=== PATIENT | female | born 1990 | race Caucasian/White ===

== ENCOUNTER → 2016-08-08 | Outpatient (CLI) | payer MEDICAID ==
[~2016-08-08] MED LIST: MOTR200T44 PO; VITAPRTA PO
[2016-08-08 19:01] LABS: BASO % 0.3 % (0.0-1.0); EOS # 0.1 K/mm3 (0.0-0.50); EOS % 0.7 % (0.0-3.0); LARGE UNSTAINED CELL # 0.1 K/mm3 (0.0-0.4); LARGE UNSTAINED CELL % 1.1 % (0.0-4.0); LYMPH # 2.5 K/mm3 (1.5-6.5); LYMPH % 30.3 % (24.0-44.0); MEAN CORPUSCULAR HEMOGLOBIN 28.2 pg (27.0-33.0); MEAN CORPUSCULAR HGB CONC 33.5 g/dl (32.0-36.5); MONO # 0.4 K/mm3 (0.0-0.8); MONO % 5.3 % (0.0-5.0); NEUTROPHILS # 5.2 K/mm3 (1.8-7.7); NEUTROPHILS % 62.4 % (36.0-66.0); PLATELET COUNT, AUTOMATED 208 k/mm3 (150-450); RED CELL DISTRIBUTION WIDTH 12.4 % (11.5-14.5); WHITE BLOOD COUNT 8.3 K/mm3 (4.0-10.0)
== END ==
LOC: M SMT 12:15
PROVIDERS: ATTEND Advanced Practice Midwife
DX: Z34.81 Encounter for supervision of other normal pregnancy, first trimester (principal)

== ENCOUNTER → 2016-08-25 | Outpatient (CLI) | payer MEDICAID ==
[2016-08-25 20:06] LABS: THYROXINE (T4) 8.2 UG/DL (4.5-12.0)
== END ==
LOC: M SMT 14:25
PROVIDERS: ATTEND Advanced Practice Midwife
DX: E03.9 Hypothyroidism, unspecified (principal)

== ENCOUNTER → 2016-08-28 | Outpatient (REF) | payer MEDICAID | LOC: M LAB REF 10:53 | PROVIDERS: ATTEND Advanced Practice Midwife | DX: Z34.81 Encounter for supervision of other normal pregnancy, first trimester (principal) ==

== ENCOUNTER → 2016-09-10 | Day surgery (SDC) | payer MEDICAID, OTHER ==
[~2016-09-10] MED LIST changes: +KETOROLAC 30 MG/ML VIAL (J1885) IV SCH; +KETOROLAC 60 MG/2 ML VIAL (J1885) As Ordered ONE; +LIDOCAINE 1% SDV INJ 30 ML VIAL As Ordered ONE; +LIDOCAINE 2% INJ 100 MG/5 ML SDV (FOR ANES.) As Ordered ONE; +MIDAZOLAM INJ 2 MG/2 ML VIAL (J2250) As Ordered ONE; +ONDANSETRON 4MG/2ML VIAL (J2405) As Ordered ONE; +PERCOCET 5MG/325MG TAB As Ordered ONE; +PERCOCET 5MG/325MG TAB PO PRN; +PROPOFOL 200 MG/20 ML VIAL As Ordered ONE; +PROPOFOL 500 MG/50 ML VIAL As Ordered ONE; +fentaNYL 100 MCG/2 ML INJECTION (J3010) As Ordered ONE
[2016-09-10 12:53] LABS: MEAN CORPUSCULAR HEMOGLOBIN 29.5 pg (27.0-33.0); MEAN CORPUSCULAR HGB CONC 35.2 g/dl (32.0-36.5); MEAN CORPUSCULAR VOLUME 83.9 fl (80.0-96.0); WHITE BLOOD COUNT 7.8 K/mm3 (4.0-10.0)
[2016-09-10 15:05] VITALS: BP 114/62
--- NOTE | 2016-09-10 16:18 | RO ---
DATE OF PROCEDURE: 09/10/2016 PREPROCEDURE DIAGNOSIS: Intrauterine embryonic demise. POSTPROCEDURE DIAGNOSIS: Intrauterine embryonic demise. PROCEDURE: Dilation with sharp suction and curettage. SURGEON: Kacey Urias MD CANE FLUME FEEDING MACHINE OPERATOR: None. ANESTHESIA: IV sedation with paracervical block. ESTIMATED BLOOD LOSS: 20 mL INTRAVENOUS FLUIDS: 400 mL SPECIMENS: Uterine contents. DESCRIPTION OF OPERATION: After informed consent was obtained and written consent was reviewed, the patient was taken to the operating room where IV sedation was placed. She was then placed in the lithotomy position, and was prepped and draped in a normal sterile fashion. A time out in the operating room was then performed identifying the patient, procedure to be performed as well as drug allergies. A bivalve speculum was placed revealing the cervix. A paracervical block was then performed utilizing 1% lidocaine. The anterior lip of the cervix was then grasped with a single tooth tennaculum. The uterus was sounded to 9 cm. Was then sequentially dilated using Hanks dilators. #9 curved suction curette was then advanced through the cervical os to the level of the fundus. This was attached to suction. Suction was deployed. The uterus was curetted in a 360 degrees fashion. A large amount of tissue was obtained. The suction curette was then removed. Raz Stone forceps were then advanced into the cervical os where there was tissue, which was teased out from the cervical os. That was also collected and sent to pathology. The sharp curette was then advanced through the cervical os to the level of the fundus and the uterus was curetted in 360 degrees fashion. A second pass of the suction curette was then performed productive of minimal amounts of blood, then no further tissue. The instruments were then removed from the patient's vagina. Single tooth tenaculum was removed. Tenaculum sites were noted to be hemostatic. Speculum was removed. The patient was then taken out of lithotomy position, was taken to recovery in stable condition. Counts were correct.
== END | disposition home or self-care (01) ==
LOC: M SDC 10:16
PROVIDERS: ATTEND Obstetrics & Gynecology
DX: O02.1 Missed abortion (principal)
CPT/HCPCS: 36415; 59820; 85027; 86850; 86900; 86901; 88305; J1885; J2250; J2405; J3010

== ENCOUNTER → 2017-02-11 | Outpatient (CLI) | payer OTHER ==
[~2017-02-11] MED LIST changes: +ASPI81TA85 PO; -KETOROLAC 30 MG/ML VIAL (J1885) IV SCH; -KETOROLAC 60 MG/2 ML VIAL (J1885) As Ordered ONE; -LIDOCAINE 1% SDV INJ 30 ML VIAL As Ordered ONE; -LIDOCAINE 2% INJ 100 MG/5 ML SDV (FOR ANES.) As Ordered ONE; -MIDAZOLAM INJ 2 MG/2 ML VIAL (J2250) As Ordered ONE; -ONDANSETRON 4MG/2ML VIAL (J2405) As Ordered ONE; -PERCOCET 5MG/325MG TAB As Ordered ONE; -PERCOCET 5MG/325MG TAB PO PRN; -PROPOFOL 200 MG/20 ML VIAL As Ordered ONE; -PROPOFOL 500 MG/50 ML VIAL As Ordered ONE; -fentaNYL 100 MCG/2 ML INJECTION (J3010) As Ordered ONE
[2017-02-11 13:07] LABS: BASO % 0.2 % (0.0-1.0); EOS % 0.4 % (0.0-3.0); IMMATURE GRANULOCYTE % 0.2 % (0-0); LYMPH # 2.7 10^3/uL (1.5-6.5); MEAN CORPUSCULAR HEMOGLOBIN 28.3 pg (27.0-33.0); MEAN CORPUSCULAR HGB CONC 33.7 g/dl (32.0-36.5); MONO # 0.6 10^3/uL (0.0-0.8); MONO % 7.1 % (0.0-5.0); NEUTROPHILS # 4.7 10^3/uL (1.8-7.7); NEUTROPHILS % 58.1 % (36.0-66.0); PLATELET COUNT, AUTOMATED 238 10^3/uL (150-450); RED CELL DISTRIBUTION WIDTH 12.7 % (11.5-14.5)
[2017-02-11 13:38] LABS: HBsAg Prenatal NEGATIVE (NEGATIVE)
== END ==
LOC: M SMT 10:03
PROVIDERS: ATTEND Advanced Practice Midwife
DX: Z34.81 Encounter for supervision of other normal pregnancy, first trimester (principal)

== ENCOUNTER → 2017-02-27 | Outpatient (CLI) | payer OTHER ==
[2017-02-27 18:57] LABS: THYROXINE (T4) 7.8 UG/DL (4.5-12.0)
== END ==
LOC: M SMT 11:38
PROVIDERS: ATTEND Advanced Practice Midwife
DX: E03.9 Hypothyroidism, unspecified (principal)

== ENCOUNTER 2017-03-27 14:06 | Day surgery (SDC) | payer OTHER ==
[~2017-03-27] VITALS: Ht 177.8 cm; Wt 89.4 kg
[2017-03-27] MEDS ORDERED: PROPOFOL 200 MG/20 ML VIAL As Ordered ONE (14:20)
[2017-03-27] MEDS ORDERED: KETOROLAC 60 MG/2 ML VIAL (J1885) As Ordered ONE (14:20)
[2017-03-27] MEDS ORDERED: fentaNYL 100 MCG/2 ML INJECTION (J3010) As Ordered ONE (14:20)
[2017-03-27] MEDS ORDERED: LIDOCAINE 2% INJ 100 MG/5 ML SDV (FOR ANES.) As Ordered ONE (14:20)
[2017-03-27] MEDS ORDERED: ONDANSETRON 4MG/2ML VIAL (J2405) As Ordered ONE (14:20)
[2017-03-27] MEDS ORDERED: MIDAZOLAM INJ 2 MG/2 ML VIAL (J2250) As Ordered ONE (14:20)
[2017-03-27] MEDS ORDERED: dexameTHASONE 4 MG/ML 1ML VIAL (J1100) As Ordered ONE (14:20)
[2017-03-27] MEDS: LIDOCAINE 1% SDV INJ 30 ML VIAL As Ordered ONE ×2 (15:05→15:17)
[2017-03-27] MEDS ORDERED: ACETAMINOPHEN 500 MG TAB As Ordered ONE (16:24)
[2017-03-27 16:30] VITALS: BP 112/56
[2017-03-27] MEDS ORDERED: LR 1,000 ML IV SCH (16:30)
[2017-03-27] MEDS ORDERED: ACETAMINOPHEN 500 MG TAB PO ONE (16:45)
--- NOTE | 2017-03-29 09:07 | RO ---
DATE OF PROCEDURE: 03/27/2017 PREOPERATIVE DIAGNOSIS: Embryonic demise. POSTOPERATIVE DIAGNOSIS: Embryonic demise. PROCEDURE: Dilatation, evacuation and curettage (DE C). SURGEON: Kuldip Cardoza MD BIT WELDER: ANESTHESIA: Local with sedation. ESTIMATED BLOOD LOSS: 50 mL. FINDINGS: Moderate amount of products of conception with mildly enlarged uterus. OPERATIVE SUMMARY: Patient was taken to the operating room where IV sedation was given. She was prepped and draped in the usual sterile fashion in the dorsal lithotomy position. A speculum was placed. The anterior lip of the cervix was grasped with the tenaculum. The cervix was injected circumferentially with 20 mL of 1% lidocaine. The cervix was dilated with tapered dilators. A number 9 mm curette was placed through the internal os. The suction device was activated and the curette was gently rotated. The products of conception were noted coming through the suction tubing. A sharp curettage was performed. The uterine cavity was deemed to be empty. Sponge and instrument counts were correct. The patient went to the recovery room in stable condition.
== END 2017-03-27 16:55 | disposition home or self-care (01) ==
LOC: M SDC 14:06
PROVIDERS: ATTEND Specialist
DX: O02.1 Missed abortion (principal); Z87.891 Personal history of nicotine dependence; Z79.899 Other long term (current) drug therapy; Z79.82 Long term (current) use of aspirin

== ENCOUNTER → 2017-06-30 | Outpatient (CLI) | payer OTHER ==
[2017-06-30 20:22] LABS: HCG, SERUM QUANTITATIVE 112040 MIU/ML
== END ==
LOC: M SMT 13:42
DX: Z34.80 Encounter for supervision of other normal pregnancy, unspecified trimester (principal)
CPT/HCPCS: 84702

== ENCOUNTER → 2017-08-04 | Outpatient (CLI) | payer OTHER ==
[2017-08-04 13:30] LABS: BASO % 0.2 % (0.0-1.0); EOS % 0.4 % (0.0-3.0); HEMOGLOBIN 12.1 g/dl (12.0-16.0); IMMATURE GRANULOCYTE % 0.2 % (0-3.0); LYMPH # 2.2 10^3/uL (1.5-6.5); LYMPH % 23.4 % (24.0-44.0); MEAN CORPUSCULAR HEMOGLOBIN 28.6 pg (27.0-33.0); MEAN CORPUSCULAR HGB CONC 33.6 g/dl (32.0-36.5); MEAN CORPUSCULAR VOLUME 85.1 fl (80.0-96.0); MONO # 0.6 10^3/uL (0.0-0.8); MONO % 6.7 % (0.0-5.0); NEUTROPHILS # 6.5 10^3/uL (1.8-7.7); NEUTROPHILS % 69.1 % (36.0-66.0); PLATELET COUNT, AUTOMATED 218 10^3/uL (150-450); RED BLOOD COUNT 4.23 10^6/uL (4.00-5.40); RED CELL DISTRIBUTION WIDTH 13.6 % (11.5-14.5); WHITE BLOOD COUNT 9.4 10^3/uL (4.0-10.0)
[2017-08-04 14:14] LABS: FREE THYROXINE INDEX 2.4 % (1.3-4.8); T UPTAKE 21 % (30-39); THYROXINE (T4) 11.2 UG/DL (4.5-12.0)
[2017-08-04 15:47] LABS: CHLAMYDIA DNA AMPLIFICATION NEGATIVE (NEGATIVE); GC DNA AMPLIFICATION NEGATIVE (NEGATIVE)
[2017-08-05 12:15] LABS: RUBELLA IgG QUALITATIVE IMMUNE (IMMUNE)
[2017-08-05 12:18] LABS: HBsAg Prenatal NEGATIVE (NEGATIVE)
[2017-08-05 12:45] LABS: HEPATITIS C VIRUS ABY INDEX 0.1 INDEX (<0.8)
[2017-08-05 12:46] LABS: HIV 1&2 SCREEN CENTAUR NEGATIVE (NEGATIVE)
== END ==
LOC: M SMT 09:56
DX: Z34.81 Encounter for supervision of other normal pregnancy, first trimester (principal); Z3A.12 12 weeks gestation of pregnancy
CPT/HCPCS: 84443

== ENCOUNTER → 2017-09-14 | Outpatient (CLI) | payer OTHER | LOC: M SMT 11:15 | DX: Z36.2 Encounter for other antenatal screening follow-up (principal); Z3A.21 21 weeks gestation of pregnancy | CPT/HCPCS: 76816 ==

== ENCOUNTER → 2017-12-25 | Outpatient (REF) | payer OTHER | LOC: M LAB REF 17:12 | DX: Z34.83 Encounter for supervision of other normal pregnancy, third trimester (principal) ==

== ENCOUNTER 2018-01-10 15:58 | Inpatient (IN) | payer OTHER ==
[2018-01-10] MEDS ORDERED: LR 1,000 ML IV (17:22)
[2018-01-10] MEDS: LACTATED RINGER'S 1000 ML IV (18:38)
[2018-01-10 18:52] LABS: HEMATOCRIT 36.5 % (36.0-47.0); HEMOGLOBIN 12.5 g/dl (12.0-15.5); MEAN CORPUSCULAR HEMOGLOBIN 29.4 pg (27.0-33.0); MEAN CORPUSCULAR HGB CONC 34.2 g/dl (32.0-36.5); MEAN CORPUSCULAR VOLUME 85.9 fl (80.0-96.0); PLATELET COUNT, AUTOMATED 190 10^3/uL (150-450); RED BLOOD COUNT 4.25 10^6/uL (4.00-5.40); RED CELL DISTRIBUTION WIDTH 13.6 % (11.5-14.5); WHITE BLOOD COUNT 8.6 10^3/uL (4.0-10.0)
[2018-01-10] MEDS ORDERED: FENTANYL 2MCG/ML ROPIVACAINE 0.2% IN 0.9% NACL 200ML IVBAG As Ordered (19:38)
[2018-01-10] MEDS ORDERED: OXYTOCIN 30 UNITS IN 0.9% NaCl 500ML IV BAG (J2590) As Ordered (22:49)
[2018-01-10] MEDS ORDERED: diphenhydrAMINE INJ 50MG/ML VIAL (J1200) IV (23:15)
[2018-01-10] MEDS ORDERED: NALOXONE INJ 0.4 MG/1 ML VIAL (J2310) IV (23:15)
[2018-01-10] MEDS ORDERED: REFRIGERATOR IV KEYS XX (23:15)
[2018-01-10] MEDS ORDERED: EPIDURAL COMMENT XX (23:15)
[2018-01-10] MEDS ORDERED: FENTANYL/ROPIVACAINE/NACL BAG 200 ML EPIDURAL (23:15)
[2018-01-10] MEDS ORDERED: LACTATED RINGER'S 1000 ML IV (23:15)
[2018-01-10] MEDS ORDERED: EPIDURAL/PCA KEYS XX (23:15)
[2018-01-10] MEDS ORDERED: ePHEDrine SULFATE 25 MG/5 ML(5MG/ML) SYRINGE IV (23:15)
[2018-01-10] MEDS ORDERED: ONDANSETRON 4MG/2ML VIAL (J2405) IV (23:15)
[2018-01-11 01:56] LABS: CORD GAS ABE A -10.7; CORD GAS ABE V -3.6; CORD GAS HCO3 A 19.7 MEQ/L; CORD GAS HCO3 V 21.9 MEQ/L; CORD GAS O2 SAT A 71.6 %; CORD GAS O2 SAT V 92.4 %; CORD GAS PCO2 A 64.9 mmHg; CORD GAS PCO2 V 41.2 mmHg; CORD GAS PH A 7.099 UNITS; CORD GAS PH V 7.344 UNITS; CORD GAS PO2 A 40.4 mmHg; CORD GAS PO2 V 52.4 mmHg; CORD GAS SBC A 15.6 MEQ/L; CORD GAS SBC V 21.4 MEQ/L; CORD GAS TCO2 A 21.6 MEQ/L; CORD GAS TCO2 V 23.2 MEQ/L
[2018-01-11] MEDS ORDERED: DIBUCAINE 1% OINTMENT 30GM TOP (02:15)
[2018-01-11] MEDS ORDERED: PROMETHAZINE 25 MG TAB PO (02:15)
[2018-01-11] MEDS ORDERED: DOCUSATE SODIUM 100 MG CAP PO (02:15)
[2018-01-11] MEDS ORDERED: ONDANSETRON 4MG/2ML VIAL (J2405) IV (02:15)
[2018-01-11] MEDS: ACETAMINOPHEN 500 MG TAB PO ×3 (04:11→17:56)
[2018-01-11] MEDS: LR 1,000 ML IV (04:12)
[2018-01-11] MEDS: OXYTOCIN DRIP 30 UNITS in APPROPRIATE DILUENT 1 EA IV (04:12)
[2018-01-11] MEDS: PRENATAL VITAMINS CHEWABLE TABLET PO (08:48)
[2018-01-11] MEDS: IBUPROFEN 800 MG TAB PO ×2 (08:49→22:52)
[2018-01-11] MEDS: MEASLES,MUMPS,RUBELLA VACCINE INJ (MMR-II) (90707) SC (13:36)
[2018-01-11] MEDS: RHOGAM 300 MCG (1500 IU) INJ (J2790) IM (13:36)
[2018-01-12] MEDS: ACETAMINOPHEN 500 MG TAB PO (08:19)
[2018-01-12] MEDS: PRENATAL VITAMINS CHEWABLE TABLET PO (08:19)
== END 2018-01-12 12:20 | disposition home or self-care (01) | DRG 560 ==
LOC: M LDO 15:58 → M OBS 01-11 04:45 → M LDI 17:23
PROVIDERS: Obstetrics & Gynecology
PROC: 10E0XZZ Delivery of Products of Conception, External Approach (ICD-10-PCS; principal; 2018-01-11)
PROC: 10907ZC Drainage of Amniotic Fluid, Therapeutic from Products of Conception, Via Natural or Artificial Opening (ICD-10-PCS; 2018-01-11)
DX: O69.1XX0 Labor and delivery complicated by cord around neck, with compression, not applicable or unspecified (principal); Z37.0 Single live birth; Z3A.38 38 weeks gestation of pregnancy

== ENCOUNTER 2018-01-12 23:46 | Inpatient (IN) | payer OTHER ==
[2018-01-13 01:05] LABS: BASO % 0.1 % (0.0-1.0); EOS % 0.1 % (0.0-3.0); HEMATOCRIT 34.5 % (36.0-47.0); HEMOGLOBIN 11.9 g/dl (12.0-15.5); IMMATURE GRANULOCYTE % 0.8 % (0-3.0); LYMPH # 0.6 10^3/uL (1.5-6.5); LYMPH % 3.4 % (24.0-44.0); MEAN CORPUSCULAR HEMOGLOBIN 29.5 pg (27.0-33.0); MEAN CORPUSCULAR HGB CONC 34.5 g/dl (32.0-36.5); MEAN CORPUSCULAR VOLUME 85.6 fl (80.0-96.0); MONO % 5.5 % (0.0-5.0); NEUTROPHILS # 16.3 10^3/uL (1.8-7.7); NEUTROPHILS % 90.1 % (36.0-66.0); PLATELET COUNT, AUTOMATED 154 10^3/uL (150-450); RED BLOOD COUNT 4.03 10^6/uL (4.00-5.40); RED CELL DISTRIBUTION WIDTH 13.5 % (11.5-14.5); WHITE BLOOD COUNT 18.1 10^3/uL (4.0-10.0)
[2018-01-13] MEDS: MORPHINE 4 MG/ML 1ML VIAL/SYRINGE (J2270) IV ×2 (01:06→04:06)
[2018-01-13] MEDS: NS 1,000 ML IV ×2 (01:06→02:45)
[2018-01-13 01:12] LABS: LACTIC ACID SEPSIS PROTOCOL 1.7 MMOL/L (0.4-2.0)
[2018-01-13 01:13] LABS: ALBUMIN 2.4 GM/DL (3.2-5.2); ALBUMIN/GLOBULIN RATIO 0.77 (1.00-1.93); ALKALINE PHOSPHATASE 114 U/L (45-117); ALT/SGPT 15 U/L (12-78); ANION GAP 13 MEQ/L (8-16); AST/SGOT 17 U/L (7-37); BILIRUBIN,DIRECT 0.1 MG/DL (0.0-0.2); BILIRUBIN,TOTAL 0.4 MG/DL (0.2-1.0); BLOOD UREA NITROGEN 4 MG/DL (7-18); CALCIUM LEVEL 8.3 MG/DL (8.5-10.1); CARBON DIOXIDE LEVEL 22 MEQ/L (21-32); CHLORIDE LEVEL 108 MEQ/L (98-107); CK-MB VALUE MASS < 1.0 NG/ML (<3.6); CPK CREATINE PHOSPHOKINASE 154 U/L (26-192); CREATININE FOR GFR 0.69 MG/DL (0.55-1.30); GLOMERULAR FILTRATION RATE > 60.0 (>60); GLUCOSE, FASTING 83 MG/DL (70-100); LIPASE 89 U/L (73-393); MB/CK RELATIVE INDEX 0.64 (< OR =4); POTASSIUM SERUM 3.3 MEQ/L (3.5-5.1); SODIUM LEVEL 143 MEQ/L (136-145); TOTAL PROTEIN 5.5 GM/DL (6.4-8.2); TROPONIN I < 0.02 NG/ML (< 0.10)
[2018-01-13 01:22] LABS: INR 1.04; PARTIAL THROMBOPLASTIN TIME 36.1 SECONDS (25.4-37.6); PROTHROMBIN TIME 13.7 SECONDS (12.1-14.4)
[2018-01-13] MEDS: POTASSIUM CHLORIDE 10 MEQ SR TABLET PO (01:30)
[2018-01-13] MEDS ORDERED: ISOVUE-370 76% 100ML VIAL (Q9967) As Ordered (01:36)
[2018-01-13 01:54] LABS: INFLUENZA A AMPLIFICATION NEGATIVE (NEGATIVE); INFLUENZA B AMPLIFICATION NEGATIVE (NEGATIVE)
[2018-01-13] MEDS: ACETAMINOPHEN TAB 650MG DOSE (2X325MG) PO (02:45)
[2018-01-13 04:16] LABS: APPEARANCE, URINE MANUAL HAZY (CLEAR)
[2018-01-13 04:17] LABS: COLOR, URINE MANUAL PINK (YELLOW); SPECIFIC GRAVITY,URINE MANUAL 1.005 (1.002-1.035)
[2018-01-13 04:18] LABS: BILIRUBIN, URINE MANUAL NEGATIVE (NEGATIVE); BLOOD URINE MANUAL POSITIVE (NEGATIVE); GLUCOSE, URINE (UA) MANUAL NEGATIVE (NEGATIVE); KETONE, URINE MANUAL NEGATIVE (NEGATIVE); LEUKOCYTE ESTERASE, URINE MAN POSITIVE (NEGATIVE); MICROSCOPIC INDICATED? MAN YES (NO); NITRITE, URINE MANUAL NEGATIVE (NEGATIVE); PROTEIN, URINE MANUAL 2+ mg/dL (NEGATIVE); UROBILINOGEN, URINE MANUAL NORMAL (NORMAL)
[2018-01-13 04:22] LABS: MICROSCOPIC EXAM PERFORMED
[2018-01-13 04:23] LABS: SQUAMOUS EPITHELIAL CELL URINE MOD AMOUNT /hpf (SMALL AMT); WBC, URINE TNTC /hpf (0-3)
[2018-01-13 04:24] LABS: AMORPHOUS SEDIMENT, URINE SMALL AMOUNT (NEGATIVE); BACTERIA, URINE SMALL AMOUNT
[2018-01-13] MEDS ORDERED: ONDANSETRON 4MG/2ML VIAL (J2405) IV (05:30)
[2018-01-13] MEDS: AMPICILLIN SOD/SULBACTAM SOD 1.5 GM in D5W MINI-BAG PLUS 50 ML IV ×4 (06:40→23:50)
[2018-01-13] MEDS: LR 1,000 ML IV ×3 (06:40→21:30)
[2018-01-13] MEDS: IBUPROFEN 800 MG TAB PO ×3 (06:41→18:11)
[2018-01-13] MEDS: PERCOCET 5MG/325MG TAB PO ×3 (06:41→22:57)
[2018-01-13] MEDS: DOCUSATE SODIUM 100 MG CAP PO ×2 (12:06→21:00)
[2018-01-14] MEDS: IBUPROFEN 800 MG TAB PO ×3 (03:10→15:49)
[2018-01-14] MEDS: LR 1,000 ML IV ×2 (05:30→11:17)
[2018-01-14] MEDS: AMPICILLIN SOD/SULBACTAM SOD 1.5 GM in D5W MINI-BAG PLUS 50 ML IV ×3 (06:09→18:22)
[2018-01-14 07:09] LABS: HEMATOCRIT 33.1 % (36.0-47.0); HEMOGLOBIN 10.8 g/dl (12.0-15.5); MEAN CORPUSCULAR HEMOGLOBIN 29.2 pg (27.0-33.0); MEAN CORPUSCULAR HGB CONC 32.6 g/dl (32.0-36.5); MEAN CORPUSCULAR VOLUME 89.5 fl (80.0-96.0); PLATELET COUNT, AUTOMATED 162 10^3/uL (150-450); RED CELL DISTRIBUTION WIDTH 13.9 % (11.5-14.5); WHITE BLOOD COUNT 11.4 10^3/uL (4.0-10.0)
[2018-01-14] MEDS: DOCUSATE SODIUM 100 MG CAP PO (09:23)
[2018-01-14] MEDS ORDERED: ACETAMINOPHEN 500 MG TAB PO (11:00)
[2018-01-14] MEDS: PRENATAL VITAMINS CHEWABLE TABLET PO (11:18)
== END 2018-01-14 21:00 | disposition home or self-care (01) | DRG 561 ==
LOC: M ED 23:46 → M ED INP 01-13 05:00 → M OBS 01-13 06:01
DX: O86.12 Endometritis following delivery (principal)

== ENCOUNTER 2018-01-18 13:10 | Day surgery (SDC) | payer OTHER ==
[2018-01-18] MEDS: NS 1,000 ML IV ×2 (14:45→16:15)
[2018-01-18 15:03] LABS: BASO % 0.2 % (0.0-1.0); EOS % 0.2 % (0.0-3.0); HEMATOCRIT 35.4 % (36.0-47.0); HEMOGLOBIN 11.6 g/dl (12.0-15.5); IMMATURE GRANULOCYTE % 1.3 % (0-3.0); LYMPH # 1.5 10^3/uL (1.5-6.5); LYMPH % 7.8 % (24.0-44.0); MEAN CORPUSCULAR HEMOGLOBIN 28.9 pg (27.0-33.0); MEAN CORPUSCULAR HGB CONC 32.8 g/dl (32.0-36.5); MEAN CORPUSCULAR VOLUME 88.3 fl (80.0-96.0); MONO # 1.5 10^3/uL (0.0-0.8); MONO % 7.9 % (0.0-5.0); NEUTROPHILS # 15.8 10^3/uL (1.8-7.7); NEUTROPHILS % 82.6 % (36.0-66.0); PLATELET COUNT, AUTOMATED 224 10^3/uL (150-450); RED BLOOD COUNT 4.01 10^6/uL (4.00-5.40); RED CELL DISTRIBUTION WIDTH 13.2 % (11.5-14.5); WHITE BLOOD COUNT 19.1 10^3/uL (4.0-10.0)
[2018-01-18 15:20] LABS: INR 1.13; PROTHROMBIN TIME 14.7 SECONDS (12.1-14.4)
[2018-01-18 15:21] LABS: PARTIAL THROMBOPLASTIN TIME 43.4 SECONDS (25.4-37.6)
[2018-01-18 15:25] LABS: ALBUMIN 2.4 GM/DL (3.2-5.2); ALBUMIN/GLOBULIN RATIO 0.59 (1.00-1.93); ALKALINE PHOSPHATASE 107 U/L (45-117); ALT/SGPT 21 U/L (12-78); ANION GAP 10 MEQ/L (8-16); AST/SGOT 10 U/L (7-37); BILIRUBIN,DIRECT 0.1 MG/DL (0.0-0.2); BILIRUBIN,TOTAL 0.5 MG/DL (0.2-1.0); BLOOD UREA NITROGEN 7 MG/DL (7-18); CALCIUM LEVEL 8.4 MG/DL (8.5-10.1); CARBON DIOXIDE LEVEL 25 MEQ/L (21-32); CHLORIDE LEVEL 110 MEQ/L (98-107); CREATININE FOR GFR 0.74 MG/DL (0.55-1.30); GLOMERULAR FILTRATION RATE > 60.0 (>60); GLUCOSE, FASTING 78 MG/DL (70-100); POTASSIUM SERUM 3.5 MEQ/L (3.5-5.1); SODIUM LEVEL 145 MEQ/L (136-145); TOTAL PROTEIN 6.5 GM/DL (6.4-8.2)
[2018-01-18] MEDS: AMPICILLIN SOD/SULBACTAM SOD 3 GM in D5W MINI-BAG PLUS 100 ML IV ×2 (15:36→21:10)
[2018-01-18] MEDS ORDERED: SILVER NITRATE APPLICATOR As Ordered (17:12)
[2018-01-18] MEDS ORDERED: SUCCINYLCHOLINE 100 MG/5 ML SYRINGE (J0330) As Ordered (17:30)
[2018-01-18] MEDS ORDERED: KETOROLAC 60 MG/2 ML VIAL (J1885) As Ordered (17:30)
[2018-01-18] MEDS ORDERED: ROCURONIUM BROMIDE 50 MG/5 ML VIAL As Ordered (17:30)
[2018-01-18] MEDS ORDERED: GLYCOPYRROLATE INJ 0.2 MG/ML 2 ML VIAL As Ordered (17:30)
[2018-01-18] MEDS ORDERED: fentaNYL 100 MCG/2 ML INJECTION (J3010) As Ordered ×2 (17:30→18:32)
[2018-01-18] MEDS ORDERED: MIDAZOLAM INJ 2 MG/2 ML VIAL (J2250) As Ordered (17:30)
[2018-01-18] MEDS ORDERED: PROPOFOL 200 MG/20 ML VIAL As Ordered ×2 (17:30→17:47)
[2018-01-18] MEDS ORDERED: LIDOCAINE 2% INJ 100 MG/5 ML SDV (FOR ANES.) As Ordered (17:30)
[2018-01-18] MEDS ORDERED: NEOSTIGMINE 10 MG/10 ML VIAL (J2710) As Ordered (17:30)
[2018-01-18] MEDS ORDERED: ONDANSETRON 4MG/2ML VIAL (J2405) As Ordered (17:30)
[2018-01-18] MEDS ORDERED: METOCLOPRAMIDE INJ 10MG/2ML VIAL (J2765) As Ordered (17:30)
[2018-01-18] MEDS: METHYLERGONOVINE MALEATE 0.2 MG/ML VIAL (J2210) As Ordered (17:43)
[2018-01-18] MEDS ORDERED: OXYTOCIN INJ 10 UNITS/ML VIAL (J2590) As Ordered ×4 (17:47→17:55)
[2018-01-18] MEDS ORDERED: NORCO, ANEXSIA 5/325MG TABLET (HYDROcodone/ACETAMINOPHEN) As Ordered ×2 (18:44→19:21)
[2018-01-18] MEDS: NORCO, ANEXSIA 5/325MG TABLET (HYDROcodone/ACETAMINOPHEN) PO ×2 (18:46→19:22)
[2018-01-18] MEDS ORDERED: ONDANSETRON 4MG/2ML VIAL (J2405) IV ×2 (19:00)
[2018-01-18] MEDS ORDERED: PERCOCET 5MG/325MG TAB PO ×2 (19:00)
[2018-01-18] MEDS ORDERED: ACETAMINOPHEN 500 MG TAB PO (19:00)
[2018-01-18] MEDS ORDERED: LR 1,000 ML IV (19:00)
[2018-01-18] MEDS ORDERED: PROMETHAZINE INJ 25 MG/ML VIAL (J2550) IV (19:00)
[2018-01-18] MEDS ORDERED: DOCUSATE SODIUM 100 MG CAP PO (19:00)
[2018-01-18] MEDS ORDERED: fentaNYL 100 MCG/2 ML INJECTION (J3010) IV (19:00)
[2018-01-18] MEDS: DOCUSATE SODIUM 100 MG CAP PO (21:09)
[2018-01-18] MEDS: METHYLERGONOVINE MALEATE 0.2 MG TAB PO ×2 (21:09→23:45)
[2018-01-18] MEDS: KETOROLAC 30 MG/ML VIAL (J1885) IV (23:44)
[2018-01-19] MEDS: AMPICILLIN SOD/SULBACTAM SOD 3 GM in D5W MINI-BAG PLUS 100 ML IV ×3 (03:24→15:20)
[2018-01-19] MEDS: METHYLERGONOVINE MALEATE 0.2 MG TAB PO ×4 (03:24→15:19)
[2018-01-19] MEDS: KETOROLAC 30 MG/ML VIAL (J1885) IV ×2 (06:31→12:07)
[2018-01-19 07:12] LABS: BASO % 0.2 % (0.0-1.0); HEMATOCRIT 32.4 % (36.0-47.0); HEMOGLOBIN 10.9 g/dl (12.0-15.5); IMMATURE GRANULOCYTE % 2.4 % (0-3.0); LYMPH # 1.4 10^3/uL (1.5-6.5); LYMPH % 8.4 % (24.0-44.0); MEAN CORPUSCULAR HEMOGLOBIN 29.3 pg (27.0-33.0); MEAN CORPUSCULAR HGB CONC 33.6 g/dl (32.0-36.5); MEAN CORPUSCULAR VOLUME 87.1 fl (80.0-96.0); MONO # 1.1 10^3/uL (0.0-0.8); MONO % 6.7 % (0.0-5.0); NEUTROPHILS # 13.3 10^3/uL (1.8-7.7); NEUTROPHILS % 82.3 % (36.0-66.0); PLATELET COUNT, AUTOMATED 206 10^3/uL (150-450); RED BLOOD COUNT 3.72 10^6/uL (4.00-5.40); RED CELL DISTRIBUTION WIDTH 13.2 % (11.5-14.5); WHITE BLOOD COUNT 16.2 10^3/uL (4.0-10.0)
[2018-01-19] MEDS: DOCUSATE SODIUM 100 MG CAP PO (09:16)
[2018-01-19] MEDS: PRENATAL VITAMINS CHEWABLE TABLET PO (09:16)
[2018-01-19] MEDS ORDERED: IBUPROFEN 800 MG TAB PO (18:00)
== END 2018-01-19 18:40 | disposition home or self-care (01) ==
LOC: M ED 01-19 18:40 → M SDC 17:07 → M ED 19:30 → M PED 19:30
DX: O72.2 Delayed and secondary postpartum hemorrhage (principal); N80.9 Endometriosis, unspecified; E03.9 Hypothyroidism, unspecified; Z87.891 Personal history of nicotine dependence
CPT/HCPCS: 59160

== ENCOUNTER → 2018-02-10 | Outpatient (CLI) | payer OTHER ==
[2018-02-10 13:14] LABS: BASO % 0.2 % (0.0-1.0); EOS # 0.1 10^3/uL (0.0-0.50); EOS % 1.7 % (0.0-3.0); HEMATOCRIT 40.6 % (36.0-47.0); HEMOGLOBIN 13.4 g/dl (12.0-15.5); LYMPH # 2.3 10^3/uL (1.5-6.5); LYMPH % 50.3 % (24.0-44.0); MEAN CORPUSCULAR HEMOGLOBIN 28.2 pg (27.0-33.0); MEAN CORPUSCULAR VOLUME 85.5 fl (80.0-96.0); MONO # 0.4 10^3/uL (0.0-0.8); NEUTROPHILS # 1.9 10^3/uL (1.8-7.7); NEUTROPHILS % 39.8 % (36.0-66.0); PLATELET COUNT, AUTOMATED 210 10^3/uL (150-450); RED BLOOD COUNT 4.75 10^6/uL (4.00-5.40); RED CELL DISTRIBUTION WIDTH 12.8 % (11.5-14.5); WHITE BLOOD COUNT 4.7 10^3/uL (4.0-10.0)
== END ==
LOC: M SMT 09:17
DX: O86.12 Endometritis following delivery (principal)
CPT/HCPCS: 85025

== ENCOUNTER → 2020-05-24 | Outpatient (REF) | payer OTHER ==
[~2020-05-24] MED LIST changes: +AMOX500C PO; -ASPI81TA85 PO; +ASPI81TA86 PO; +COLA100C5 PO; +DOCU100C16 PO; +FLAG500T PO; +IBUP1TAB7 PO; +MAPA500T2 PO; +PRENTAB77 PO
== END ==
LOC: M SFHCWAGY 17:38
PROVIDERS: ATTEND Advanced Practice Midwife
DX: Z12.4 Encounter for screening for malignant neoplasm of cervix (principal)

== ENCOUNTER → 2022-07-29 | Outpatient (CLI) | payer OTHER | LOC: M PLALAB 11:34 | PROVIDERS: ATTEND Nurse Practitioner Family | DX: Z13.79 Encounter for other screening for genetic and chromosomal anomalies (principal); Z80.3 Family history of malignant neoplasm of breast ==

== ENCOUNTER → 2022-08-20 | Outpatient (CLI) | payer OTHER | LOC: M WHC 08:59 | PROVIDERS: ATTEND Nurse Practitioner Family | DX: N94.10 Unspecified dyspareunia (principal); N94.6 Dysmenorrhea, unspecified; N85.4 Malposition of uterus ==

== ENCOUNTER → 2022-09-24 | Outpatient (REF) | payer OTHER | LOC: M SFHCWAGY 17:56 | PROVIDERS: ATTEND Nurse Practitioner Family | DX: Z12.4 Encounter for screening for malignant neoplasm of cervix (principal) ==

== ENCOUNTER 2023-03-20 06:15 | Day surgery (SDC) | payer OTHER ==
[~2023-03-20] VITALS: Ht 177.8 cm; Wt 88.9 kg
[~2023-03-20 06:15] MED LIST changes: +DEBL1TAB PO; +LR 1,000 ML IV SCH; +THERTAB52 PO
[2023-03-20] MEDS ORDERED: ceFAZolin SOD 2 GM in IV 1 EA IV ONE (06:30)
[2023-03-20 06:52] LABS: HEMATOCRIT 43.6 % (36.0-47.0); HEMOGLOBIN 14.8 g/dl (12.0-15.5); MEAN CORPUSCULAR HEMOGLOBIN 29.4 pg (27.0-33.0); MEAN CORPUSCULAR HGB CONC 33.9 g/dl (32.0-36.5); MEAN CORPUSCULAR VOLUME 86.7 fl (80.0-96.0); PLATELET COUNT, AUTOMATED 257 10^3/uL (150-450); RED BLOOD COUNT 5.03 10^6/uL (4.00-5.40); WHITE BLOOD COUNT 6.5 10^3/uL (4.0-10.0)
[2023-03-20] MEDS ORDERED: METHYLENE BLUE 0.5% (5MG/ML) 10 ML AMP (PROVAYBLUE) As Ordered ONE ×2 (07:16→07:38)
[2023-03-20] MEDS ORDERED: ACETAMINOPHEN 1000MG 100ML IV BAG As Ordered ONE (08:05)
[2023-03-20] MEDS ORDERED: SUGAMMADEX SODIUM 500 MG/5 ML VIAL (BRIDION) As Ordered ONE (08:06)
[2023-03-20] MEDS ORDERED: KETOROLAC 60MG 2ML VIAL As Ordered ONE (08:06)
[2023-03-20] MEDS ORDERED: HYDROmorphone HCL 2MG/ML 1ML VIAL As Ordered ONE (08:28)
[2023-03-20] MEDS ORDERED: ONDANSETRON 4MG 2ML VIAL As Ordered ONE (08:56)
[2023-03-20] MEDS ORDERED: dexmedeTOMIDine (4MCG/ML)200MCG/50ML BTL (PRECEDEX) As Ordered ONE (08:56)
[2023-03-20] MEDS ORDERED: propofoL 200 MG/20 ML VIAL As Ordered ONE (08:56)
[2023-03-20] MEDS ORDERED: fentaNYL 100 MCG/2 ML INJECTION As Ordered ONE (08:56)
[2023-03-20] MEDS ORDERED: ROCURONIUM BROMIDE 50MG/5ML VIAL As Ordered ONE (08:56)
[2023-03-20] MEDS ORDERED: MIDAZOLAM INJ 2MG/2ML VIAL As Ordered ONE (08:56)
[2023-03-20] MEDS ORDERED: LIDOCAINE 2% 100MG/5ML SDV (FOR ANES.) As Ordered ONE (08:56)
[2023-03-20] MEDS ORDERED: HYDROMORPHONE HCL 0.5 MG/ 0.5 ML SYRINGE IV PRN (09:15)
[2023-03-20] MEDS ORDERED: LR 1,000 ML IV SCH (09:15)
[2023-03-20] MEDS ORDERED: ONDANSETRON 4MG 2ML VIAL IV PRN (09:15)
[2023-03-20] MEDS ORDERED: fentaNYL 100 MCG/2 ML INJECTION IV PRN (09:15)
[2023-03-20] MEDS ORDERED: METOCLOPRAMIDE INJ 10MG/2ML VIAL IV PRN (09:15)
[2023-03-20] MEDS ORDERED: MEPERIDINE 25 MG/ML 1ML VIAL As Ordered ONE (09:38)
[2023-03-20] MEDS: MEPERIDINE 25 MG/ML 1ML VIAL IV PRN ×2 (09:39→09:44)
[2023-03-20] MEDS: oxyCODONE 5MG TAB PO PRN ×2 (10:04→10:34)
[2023-03-20 10:50] VITALS: BP 118/55; TEMP 97.3; O2SAT 95
[2023-03-20] MEDS ORDERED: PERCOCET 5MG/325MG TAB PO PRN (11:15)
[2023-03-20] MEDS ORDERED: KETOROLAC 30 MG/ML 1ML VIAL IV SCH (15:00)
== END 2023-03-20 12:20 | disposition home or self-care (01) ==
LOC: M SDC 06:15
PROVIDERS: ATTEND Obstetrics & Gynecology
DX: N84.1 Polyp of cervix uteri (principal); N72 Inflammatory disease of cervix uteri; N88.8 Other specified noninflammatory disorders of cervix uteri; N80.03 Adenomyosis of the uterus; N94.6 Dysmenorrhea, unspecified; F17.210 Nicotine dependence, cigarettes, uncomplicated
CPT/HCPCS: 36415; 58571; 81025; 85027; 86850; 86900; 86901; 88307; J0131; J0665; J0690; J1100; J1170; J1885; J2175; J2250; J2405; J2765; J3010; Q9968; S2900